=== PATIENT | male | born 1995 | race African-American/Black ===

== ENCOUNTER 2017-07-08 15:09 | Emergency (ER) | payer OTHER ==
[2017-07-08] MEDS ORDERED: predniSONE 20 MG TAB ONE (17:41)
[2017-07-08] MEDS ORDERED: Famotidine 20 MG TAB ONE (17:41)
== END 2017-07-08 17:56 | disposition home or self-care (01) ==
LOC: ERS 15:09
DX: L50.0 Allergic urticaria (principal); I10 Essential (primary) hypertension
CPT/HCPCS: 99282; J7506